=== PATIENT | male | born 1985 | race Caucasian/White ===

== ENCOUNTER 2020-09-20 16:33 | Observation (INO) | payer MEDICARE, MEDICAID, SELFPAY ==
[2020-09-20] VITALS (25 sets, daily range): BP systolic 94–126; BP diastolic 58–76; PULSE 76–113; RESP 12–26; TEMP 36.6–36.7; O2SAT 95–100; BMI 21.5; BMI 24.4
--- NOTE | 2020-09-20 17:06 | ECG_ITS ---
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 Measurements Intervals [place] Rate: 104 P: 67 HI: 161 QRS: 75 QRSD: 102 T: 67 QT: 384 QTc: 507 Interpretive Statements SINUS TACHYCARDIA Compared to ECG 09/02/2018 02:04:39 Sinus rhythm no longer present Electronically Signed On 09-21-2020 9:33:07 CDT by Bismark Bryson M.D. [email or web address] memorial hospitalMode Diagnosticsohio state east hospitalSQMOS/store/OM/[id number]/[id number]
[2020-09-20 17:59] LABS: Basophils % 0.3 %; Eosinophils % 0.3 %; Hematocrit 34.6 % (42.0-52.0); Hemoglobin 11.9 g/dL (11.7-16.6); Lymphocytes # 1.7 10^3/uL (0.8-4.8); Lymphocytes % 22.2 %; Mean Corpuscular HGB Conc 34.4 g/dL (30.0-36.0); Mean Corpuscular Hemoglobin 32.1 pg (28.0-34.0); Mean Corpuscular Volume 93.3 fL (80-94); Mean Platelet Volume 9.3 fL (7.4-10.4); Monocytes # 0.4 10^3/uL (0.2-0.9); Monocytes % 5.2 %; Neutrophils # 5.34 10^3/uL (1.8-7.7); Neutrophils % 71.7 %; Nucleated Red Blood Cells % 0 %; Platelet Count 337 10^3/cmm (130-400); Red Blood Count 3.71 10^6/uL (4.1-5.3); Red Cell Distribution Width 13.2 % (12.1-15.1); White Blood Count 7.4 10^3/uL (4.0-10.0)
[2020-09-20] MEDS: sodium chloride 0.9% 1,000 ML 999 ML IV ×3 (18:04→20:45)
[2020-09-20] MEDS: HYDROmorphone 1 mg/mL INJ 1 mL IVP (18:10)
--- NOTE | 2020-09-20 18:57 | W.ED.OVERDOS ---
HPI - Overdose General: Chief Complaint: Overdose Stated Complaint: poss od soma Time Seen by Provider: 09/20/20 16:51 Source: patient Mode of arrival: ambulatory Limitations: no limitations History of Present Illness: HPI Narrative: 35-year-old male came with EMS with a supposed overdose. He had taken 10 somas per people at the scene. Patient here is awake and will follow commands but is quite confused and altered and no history is available. He does have tremors here and is tachycardic. No other known ingestion. No injuries noted. History very limited due to no 1 else being here and patient being altered. Review of Systems General: Reports: ROS unobtainable due to mental status PFSH ED PFSH: Medical History Back pain Surgical History Previous back surgery Family History Other Hypertension Social History Smoking and tobacco status: current every day smoker cigarettes Packs smoked per day: 1 Quit status (tobacco): not considering quitting Alcohol intake: current Alcohol intake frequency: holidays/special occasions only History of recent travel: No Physical Exam Const: COMMON NORMALS: negative for patient oriented x3 EXAM LIMITATIONS: altered mental status GENERAL APPEARANCE: disheveled and ill appearing HENMT: COMMON NORMALS: normocephalic and atraumatic HEAD & SCALP: normocephalic and atraumatic Eye: COMMON NORMALS: Equal, round and reactive pupils present and EOMs intact bilaterally PUPIL: Yes Equal, round and reactive pupils present Neck/C-Spine: COMMON NORMALS: full ROM and supple Chest: COMMONS NORMALS: normal inspection of the chest and normal palpation of entire chest wall Resp: COMMON NORMALS: normal respiratory effort, No retractions, No use of accessory muscles and clear to auscultation bilaterally AUSCULTATION: clear to auscultation bilaterally Cardio: COMMON NORMALS: regular rhythm and No murmurs present (Cardio) RATE: tachycardic RHYTHM: regular rhythm GI: COMMON NORMALS: Normal to inspection, nondistended, normoactive bowel sounds present, Soft to palpation, non-tender and no masses PALPATION: Yes Soft to palpation Extremity: COMMON NORMALS: normal to inspection and full ROM Neuro: COMMON NORMALS: moves all extremities and no focal motor deficits; negative for patient oriented x3 Psych: COMMON NORMALS: cooperative; negative for mental status grossly normal and negative for Normal thought process present THOUGHT PROCESS: abnormal Skin: COMMON NORMALS: no rashes or lesions noted and no wounds GENERAL SKIN EXAM: no rashes or lesions noted Course Vital Signs: Vital signs: Vital Signs Temperature 97.9 F 09/20/20 16:46 Pulse Rate 86 09/20/20 20:44 Respiratory Rate 17 09/20/20 20:44 Blood Pressure 99/68 09/20/20 20:52 Pulse Oximetry 97 09/20/20 20:44 MDM - Overdose MDM Narrative: Medical decision making narrative: Patient presents here with an overdose. Likely overdose on morphine or somas. Drug screen was positive for opiates. Patient's mentation here is improved since he has been here. His vital signs improved with IV fluids. He has no signs of sepsis or infection. CT scan showed no signs of stroke here. Spoke to the hospitalist and will admit to the ICU at this time. I do not believe the overdose was intentional but it is difficult to get a history from patient. Lab Data: Labs: Lab Results 09/20/20 09/20/20 09/20/20 Range/Units 17:51 17:51 19:05 WBC 7.4 (4.0-10.0) 10^3/ uL RBC 3.71 L (4.1-5.3) 10^6/u L Hgb 11.9 (11.7-16.6) g/dL Hct 34.6 L (42.0-52.0) % MCV 93.3 (80-94) fL MCH 32.1 (28.0-34.0) pg MCHC 34.4 (30.0-36.0) g/dL RDW 13.2 (12.1-15.1) % Plt Count 337 (130-400) 10^3/c mm MPV 9.3 (7.4-10.4) fL Neut % (Auto) 71.7 % Lymph % (Auto) 22.2 % [place] % (Auto) 5.2 % Eos % (Auto) 0.3 % Baso % (Auto) 0.3 % Neut # (Auto) 5.34 (1.8-7.7) 10^3/u L Lymph # (Auto) 1.7 (0.8-4.8) 10^3/u L Raleigh # (Auto) 0.4 (0.2-0.9) 10^3/u L Eos # (Auto) 0.0 (0.0-0.8) 10^3/u L Baso # (Auto) 0.0 (0.0-0.1) 10^3/u L Nucleated RBC % (a uto) 0 % Nucleated RBCs # 0.0 /100WBC Sodium Cancelled 134 L Potassium Cancelled 4.1 Chloride Cancelled 102 Carbon Dioxide Cancelled 22 Anion Gap Cancelled 14.1 BUN Cancelled 5 L Creatinine Cancelled 0.7 GFR Calculation Cancelled 127.6 Glucose Cancelled 91 Calculated Osmolal ity Cancelled 275 L Calcium Cancelled 8.0 L Total Bilirubin Cancelled 0.5 AST Cancelled 16 ALT Cancelled 9 Alkaline Phosphata se Cancelled 120 Total Protein Cancelled 6.6 Albumin Cancelled 3.0 L Globulin Cancelled 3.6 Salicylates Cancelled < 0.3 L Urine Opiates Scre en (Negative) ng/mL Acetaminophen Cancelled < 5.0 L Ur Barbiturates Sc reen (Negative) ng/mL Ur Phencyclidine S crn (Negative) ng/mL Ur Amphetamines Sc reen (Negative) ng/mL U Benzodiazepines Scrn (Negative) ng/mL Urine Cocaine Scre en (Negative) ng/mL U Marijuana (THC) Screen (Negative) ng/mL Ethyl Alcohol Cancelled < 10 /10/06 Range/Units 19:22 WBC (4.0-10.0) 10^3/ uL RBC (4.1-5.3) 10^6/u L Hgb (11.7-16.6) g/dL Hct (42.0-52.0) % MCV (80-94) fL MCH (28.0-34.0) pg MCHC (30.0-36.0) g/dL RDW (12.1-15.1) % Plt Count (130-400) 10^3/c mm MPV (7.4-10.4) fL Neut % (Auto) % Lymph % (Auto) % [place] % (Auto) % Eos % (Auto) % Baso % (Auto) % Neut # (Auto) (1.8-7.7) 10^3/u L Lymph # (Auto) (0.8-4.8) 10^3/u L Raleigh # (Auto) (0.2-0.9) 10^3/u L Eos # (Auto) (0.0-0.8) 10^3/u L Baso # (Auto) (0.0-0.1) 10^3/u L Nucleated RBC % (a uto) % Nucleated RBCs # /100WBC Sodium Potassium Chloride Carbon Dioxide Anion Gap BUN Creatinine GFR Calculation Glucose Calculated Osmolal ity Calcium Total Bilirubin AST ALT Alkaline Phosphata se Total Protein Albumin Globulin Salicylates Urine Opiates Scre en Positive H (Negative) ng/mL Acetaminophen Ur Barbiturates Sc reen Positive H (Negative) ng/mL Ur Phencyclidine S crn Negative (Negative) ng/mL Ur Amphetamines Sc reen Negative (Negative) ng/mL U Benzodiazepines Scrn Positive H (Negative) ng/mL Urine Cocaine Scre en Negative (Negative) ng/mL U Marijuana (THC) Screen Positive H (Negative) ng/mL Ethyl Alcohol EKG Data^: EKG 1: Attestation: I personally reviewed and interpreted this EKG as follows: EKG interpretation date: 09/20/20 EKG interpretation time: 19:11 Interpretation: sinus tach hr [address] or t wave abnormalitis qrs 102 qtc 445 Critical Care Time Critical Care Time: Critical Care Time: Yes Total Critical Care Time: 35 Attestation: This case had a high probability of a clinically significant, sudden, or life threatening deterioration of this patient's condition which required my full and direct attention, intervention and personal management. Discharge Plan Discharge Patient Disposition: Admitted As Inpatient Clinical Impression: Altered mental status Overdose Qualifiers: Encounter type: initial encounter Injury intent: undetermined intent Qualified Code(s): T50.904A - Poisoning by unspecified drugs, medicaments and biological substances, undetermined, initial encounter Condition: Stable Coding Level of Care Code ED Mechanical Maintenance for [facility] Fwd Exam Comprehensive
--- NOTE | 2020-09-20 19:19 | CTR_ITS ---
PROCEDURE INFORMATION: Exam: CT Head Without Contrast Exam date and time: 09/20/2020 7:24 PM Age: 35 years old Clinical indication: Altered mental status/memory loss; Patient HX: AMS, od TECHNIQUE: Imaging protocol: Computed tomography of the head without contrast. Sagittal and coronal reformatted images were created and reviewed. Radiation optimization: All CT scans at this facility use at least one of these dose optimization techniques: automated exposure control; mA and/or kV adjustment per patient size (includes targeted exams where dose is matched to clinical indication); or iterative reconstruction. COMPARISON: CT head wo con* [id number] 09/01/2018 7:36 PM RADIATION DOSE METRICS: Total DLP (mGy-cm): 879.82 FINDINGS: Brain: No acute intracranial hemorrhage. No acute infarct. Ramey-white matter differentiation is preserved. No cerebral edema. No extra-axial fluid collections. No midline shift. Low-density extra-axial focus along the anterior tentorium in the midline. Findings are consistent with an arachnoid cyst. This measures 1.8 x 2.8 x 2.4 cm, stable compared with 09/01/2018 (series 602, image 19 and series 2, image 26). No evidence for Chiari 1 malformation. Cerebral ventricles: No hydrocephalus. Bones/joints: No acute fracture. Paranasal sinuses: Visualized paranasal sinuses are clear. Mastoid air cells: Mastoid air cells are clear bilaterally. Orbital cavity: Globes and lenses, extraocular muscles, and optic nerves are intact bilaterally. No acute intraorbital abnormality. Vasculature: Tiny focus of pneumocephalus in the left cavernous sinus (series 2, image 18). Soft tissues: The extracranial soft tissues are unremarkable. Dental: The patient is edentulous. CT/CT head wo con* [id number] IMPRESSION: 1. Tiny focus of pneumocephalus in the left cavernous sinus (series 2, image 18). This could be due to prior trauma versus prior injection. Recommend clinical correlation. 2. No evidence for acute hemorrhage or acute infarct. 3. Findings consistent with an arachnoid cyst along the anterior tentorium in the midline. Findings are stable compared with 09/01/2018. Radiation Dose CTDIVOL = (mGy): DLP = 879.82 (mGy-cm)
--- NOTE | 2020-09-20 19:20 | PC.NURSE ---
Pt cathed for UA using sterile technique. spec taken to lab. Pt resting in bed, VSS, sitter bedside
[2020-09-20 20:06] LABS: Amphetamines Screen Urine Negative (Negative); Barbiturates Screen Urine Positive (Negative); Benzodiazepines Screen Urine Positive (Negative); Cocaine Screen Urine Negative (Negative); Opiate Screen Urine Positive (Negative); PCP Screen Urine Negative (Negative); THC Screen Urine Positive (Negative)
--- NOTE | 2020-09-20 20:26 | P.HP_ITS ---
Providers/Chief Complaint Chief Complaint: poss od soma History of Present Illness Kahlil Hutton is a 35 year old male who takes Soma and hydrocodone for back pain presented today after ingestion of multiple tablets. Patient lives with his parents, today parents called EMS when they found him very lethargic and confused. Patient is endorsing taking 10 tablets of Soma and hydrocodone. He is stating that he managed to stay off these medications for couple of months and today took 10 tablets because of his back pain he is denying suicidal ideation. Denying chest pain, shortness of breath, nausea, vomiting, blurry vision. Diagnostics in the ER revealed normal CBC and BMP, noticed myoclonic movements, drug screen positive for opioids, barbiturates, benzodiazepines, marijuana, head CT unremarkable Review of Systems Const: Reports: fatigue and malaise; Denies: fever(s), chills or body aches Eyes: Denies: change in vision ENMT: Denies: throat pain Card: Denies: chest pain Resp: Denies: dyspnea GI: Denies: abdominal pain : Denies: flank pain Musc: Denies: neck pain Skin/Breast: Denies: rash Neuro: Denies: headache(s) Psych: Reports: anxiety Endo: Denies: polyuria Aaron/Lymph: Denies: easy bruising All/Imm: Denies: urticaria Medications/Allergies Home Medications Medication Instructions Recorded Confirmed Last Taken Type carisoprodol 350 mg tablet 350 mg PO TID 06/26/19 09/20/20 Unknown History duloxetine 20 mg capsule,delayed ? mg PO BID cap 06/26/19 09/20/20 Unknown History release mirtazapine 45 mg tablet 45 mg PO DAILY 06/26/19 09/20/20 Unknown History oxycodone 10 mg tablet 10 mg PO TID PRN 06/26/19 09/20/20 Unknown History risperidone 1 mg tablet 1 mg PO BID 06/26/19 09/20/20 Unknown History tamsulosin 0.4 mg capsule 0.4 mg PO BID cap 06/26/19 09/20/20 Unknown History alprazolam 1 mg PO BID PRN 09/20/20 09/20/20 Unknown History gabapentin 800 mg PO QID 09/20/20 09/20/20 Unknown History morphine 30 mg PO Q12H 09/20/20 09/20/20 Unknown History omeprazole 20 mg PO BID 09/20/20 09/20/20 Unknown History Allergies Allergy/AdvReac Type Severity Reaction Status Date / Time lorazepam [From Ativan] Allergy Severe ALGY-Difficulty Verified 09/20/20 16:57 Breathing PFSH Acute PFSH: Medical History Back pain Surgical History Previous back surgery Family History Other Hypertension Social History Smoking and tobacco status: current every day smoker cigarettes Packs smoked per day: 1 Quit status (tobacco): not considering quitting Alcohol intake: current Alcohol intake frequency: holidays/special occasions only History of recent travel: No Vitals/I&O/Wt Last Vital Signs Temp 97.9 F 09/20/20 16:46 Pulse 113 H 09/20/20 18:12 Resp 21 H 09/20/20 18:12 BP 95/62 09/20/20 18:12 Pulse Ox 99 09/20/20 18:12 09/20/20 09/20/20 09/20/20 06:59 14:59 22:59 Intake Total 1000 / 1000 Balance 1000 / 1000 Weight last 48 hrs Weight 68.039 kg Physical Exam Narrative: EXAM NARRATIVE: Young male laying comfortably in his bed Cooperative and pleasant during my evaluation Positive myoclonic movement of upper and lower extremities, pupils are sluggish, dilated, no neurological deficit Awake alert oriented x3 GCS 15 appears lethargic S1, S2 sinus rhythm no murmur appreciated Abdomen soft nontender bowel sound present Multiple skin tattoos Lower extremity no edema gangrene or ulcer Drowsy No skin changes of cellulitis gangrene or ulcer No joint swelling Abdomen nontender Data : 09/20/20 17:51 09/20/20 19:05 A&P Assessment and plan (1) Polysubstance abuse: Status: Acute (2) Overdose: Status: Acute (3) Back pain: Status: Acute Additional A&P Information Polysubstance abuse U tox positive for marijuana, opiates, benzodiazepines, barbiturates, patient endorsed to taking 10 tablets of Soma and hydrocodone, also has opioids in his home medication Close monitoring in the ICU because of his myoclonic movement noted in the ER, QTC prolonged 507, will check magnesium level, sinus tachycardia resolved with fluid resuscitation, no active fever, closer monitoring for worsening of extrapyramidal symptoms, he is not acidotic no kidney abnormality noted, conservative management for now, no suicidal ideation Regular diet DVT prophylaxis Lovenox Full code Attestations Medical Necessity Statement*: Anticipating discharge within 48 hours will need overnight ICU monitoring because of drug overdose and QTC prolongation, Time Spent in Patient Care: (>than 50% of time spent in counselling and/or direct pt care on unit) . 35mins Coding Level of Care Code Acute Fuel House Attendant for Bessie Iqbal Diagnoses Polysubstance abuse F19.10 Overdose T50.901A Back pain M54.9
[2020-09-20 20:27] LABS: Alanine Aminotransferase 9 U/L (0-41); Alkaline Phosphatase 120 IU/L (40-130); Aspartate Amino Transferase 16 U/L (0-40); Blood Urea Nitrogen 5 mg/dL (6-20); Carbon Dioxide 22 mmol/L (22-29); Chloride 102 mmol/L (98-107); Globulin 3.6 g/dL (1.3-4.6); Glomerular Filtration Rate 127.6 mL/min (90-130); Glucose 91 mg/dL (65-115); Osmolality Calculated 275 mOsm/kg (285-295); Sodium 134 mmol/L (136-145); Total Bilirubin 0.5 mg/dL (0.15-1.2); Total Protein 6.6 g/dL (6.6-8.7)
[2020-09-20 20:34] LABS: Acetaminophen < 5.0 ug/mL (10-30); Alcohol Level < 10 mg/dL (0-10); Salicylate < 0.3 mg/dL (3-10)
[2020-09-20 20:35] LABS: Anion Gap 14.1 (5-19); Potassium 4.1 mmol/L (3.5-5.1)
--- NOTE | 2020-09-20 22:30 | PC.NURSE ---
patient was waking up, more oriented to questions and was able to ambulate without difficulty. patient was requesting to go home, Dr. Fox was agreeable to him signing out AMA. We made contact with the patients mother, per his request, to come pick him up. Indigo spoke with Dr. Fox and made him aware of the patients recent statements for wanting to harm himself and her concern that this was an intentional act to overdose himself. she is agreeable to filling out an affidavit and Dr. Fox was agreeable to admit him as a 96 hour hold. patient became aggravated and tried to run off, he was returned to the room per Dr. Fox and security. patient was able to follow commands and sit back in the bed and was agreeable to taking 5mg Haldol for agitation despite claims that this medication doesn't work for him.
[2020-09-20] MEDS: haloperidol inj 5 mg/mL INJ 1 mL IM (22:32)
[2020-09-20] MEDS: enoxaparin 40 mg/0.4 mL Syringe SUBCUT (23:09)
[2020-09-20] MEDS: calcium gluconate 0.1 gm/mL 10% SDV 10mL 1 GM IVP (23:09)
[2020-09-20] MEDS: sodium chloride 0.9% 1,000 ML 75 ML IV (23:09)
[2020-09-20 23:25] LABS: Magnesium 1.5 mg/dL (1.7-2.3); Thyroid Stimulating Hormone 0.14 uIU/mL (0.27-4.20)
[2020-09-21] VITALS (18 sets, daily range): BP systolic 91–129; BP diastolic 56–87; PULSE 65–99; RESP 15–32; TEMP 36.6–36.8; O2SAT 96–100
--- NOTE | 2020-09-21 07:00 | ECG_ITS ---
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 Measurements Intervals [place] Rate: 76 P: 74 SC: 169 QRS: 83 QRSD: 96 T: 75 QT: 378 QTc: 426 Interpretive Statements SINUS RHYTHM Compared to ECG 09/20/2020 19:11:54 Sinus tachycardia no longer present Electronically Signed On 09-21-2020 20:51:48 CDT by Emile Ruvalcaba M.D. [email or web address].[email or web address] critical care hospitalSyCara [facility].OnForce/store/OM/[id number]
--- NOTE | 2020-09-21 07:08 | PC.NURSE ---
note rare myoclonic movement.
[2020-09-21 09:09] LABS: Glucose Point of Care 104 mg/dL (70-110)
--- NOTE | 2020-09-21 09:09 | PC.NURSE ---
up to bathroom. elmo. well. ok at this time with heart monitor on so qt interval can be monitored. watchint tv. no myoclonic activity noted, doesnt like his bed. bed adjusts to pressure points. states it wakes him up.
[2020-09-21] MEDS: thiamine 100 mg Tablet PO (09:20)
[2020-09-21 10:20] LABS: Basophils % 0.2 %; Eosinophils % 0.2 %; Hematocrit 33.3 % (42.0-52.0); Hemoglobin 11.1 g/dL (11.7-16.6); Lymphocytes # 1.4 10^3/uL (0.8-4.8); Mean Corpuscular HGB Conc 33.3 g/dL (30.0-36.0); Mean Corpuscular Hemoglobin 31.8 pg (28.0-34.0); Mean Corpuscular Volume 95.4 fL (80-94); Mean Platelet Volume 9.2 fL (7.4-10.4); Monocytes # 0.4 10^3/uL (0.2-0.9); Monocytes % 5.5 %; Neutrophils # 4.76 10^3/uL (1.8-7.7); Neutrophils % 72.9 %; Nucleated Red Blood Cells % 0 %; Platelet Count 328 10^3/cmm (130-400); Red Blood Count 3.49 10^6/uL (4.1-5.3); Red Cell Distribution Width 13.4 % (12.1-15.1); White Blood Count 6.5 10^3/uL (4.0-10.0)
--- NOTE | 2020-09-21 10:31 | PC.NURSE ---
labs jovany from left piid.
[2020-09-21 11:01] LABS: Alanine Aminotransferase 10 U/L (0-41); Albumin Level 3.3 g/dL (3.5-5.2); Alkaline Phosphatase 124 IU/L (40-130); Blood Urea Nitrogen 4 mg/dL (6-20); Calcium 8.5 mg/dL (8.5-10.5); Carbon Dioxide 24 mmol/L (22-29); Chloride 108 mmol/L (98-107); Globulin 3.5 g/dL (1.3-4.6); Glomerular Filtration Rate 127.6 mL/min (90-130); Glucose 97 mg/dL (65-115); Iron 27 ug/dL (59-158); Magnesium 1.5 mg/dL (1.7-2.3); Osmolality Calculated 289 mOsm/kg (285-295); Phosphorus 1.8 mg/dL (2.5-4.5); Sodium 141 mmol/L (136-145); Total Bilirubin 0.3 mg/dL (0.15-1.2); Total Protein 6.8 g/dL (6.6-8.7); Vitamin B12 168 pg/mL (232-1245)
[2020-09-21 11:10] LABS: Anion Gap 13.1 (5-19); Potassium 4.1 mmol/L (3.5-5.1)
[2020-09-21 11:11] LABS: Aspartate Amino Transferase 22 U/L (0-40); Percent Saturation 10.8 % (20-50); Total Iron Binding Capacity 250 mcg/dl; Unsaturated Iron Binding 223 ug/dL (112-347)
[2020-09-21 11:13] LABS: HIV 1 & 2 Antibody Non-Reactive (Non-Reactiv); HIV 1 & 2 Antigen Non-Reactive (Non-Reactiv)
[2020-09-21 11:18] LABS: Folate Level 3.6 ng/mL (4.5-32.2)
--- NOTE | 2020-09-21 11:46 | PC.NURSE ---
uncle in with other family. pt. became agitated when they discussed pt. taking extra meds when he gets them in the 1st. of month. family left.
[2020-09-21 11:49] LABS: Free T4 Free Thyroxine 1.44 ng/dL (0.82-1.77)
--- NOTE | 2020-09-21 12:11 | PM.PN ---
Subjective Subjective: Interval history: Hospital course, H&P appreciated. On examination patient and comfortably in bed. He is AO x3. Denies any suicidal homicidal ideation. He states he used to take these medications on a daily basis but yesterday he was having more back pain so he took some extra tablets. He states he does not have any ideation to hurt himself. He is asking when can he go home. Denies any headache, dizziness, difficulty in breathing. Has remained hemodynamically stable and on room air overnight. EKG appreciated. Vitals/I&O/Wt Last Vital Signs Temp 98 F 09/21/20 09:00 Pulse 65 09/21/20 11:00 Resp 27 H 09/21/20 11:00 BP 110/87 09/21/20 11:00 Pulse Ox 100 09/21/20 09:00 09/20/20 09/21/20 09/21/20 22:59 06:59 14:59 Intake Total 3000 / 3000 Output Total 1350 / 1350 Balance 3000 / 3000 -1350 / 1650 Weight last 48 hrs Weight 79.379 kg Weight 68.039 kg Physical Exam Narrative: EXAM NARRATIVE: General: No acute distress, AO x3, multiple tattoos all over the body HEENT: PERRLA, pupils bilaterally equal and reactive Chest: Normal vesicular breath sounds, no added sounds, equal good air entry bilaterally CVS: S1-S2 regular, no murmurs, no tachycardia, no gallops, no rubs Abdomen: Soft, nontender, no organomegaly, bowel sounds present Neuro: No focal deficits, no facial deformity, AO x3, power 5/5 in all limbs Psych: COMMON NORMALS: mental status grossly normal, Normal thought process present and speech normal ATTITUDE: Yes calm and Yes engaged ACTIVITY/MOTOR BEHAVIOR: Yes appropriate eye contact SPEECH: Yes normal speech THOUGHT PROCESS: Normal thought process present Data : 09/21/20 10:05 09/21/20 10:05 A&P Assessment and plan (1) Polysubstance abuse: Status: Acute (2) Overdose: Status: Acute Qualifiers: Encounter type: initial encounter Injury intent: undetermined intent Qualified Code(s): T50.904A - Poisoning by unspecified drugs, medicaments and biological substances, undetermined, initial encounter (3) Back pain: Status: Acute (4) Malnutrition: Status: Acute (5) Low folate: Status: Acute (6) Low vitamin B12 level: Status: Acute Additional A&P Information Polysubstance abuse: Denies any suicidal or homicidal ideation. U tox positive for marijuana, opiates, benzodiazepines, barbiturates, patient endorsed to taking 10 tablets of Soma and hydrocodone, also has opioids in his home medication QTC has normalized. No telemetry arrhythmias. Repeat blood work. Repeat CBC, CMP. Check vitamin B12, folate, iron panel. TSH low. Check free T3 and free T4 level. On review of blood work vitamin B12, folate, iron panel depleted. Replete with vitamin B12 shot subcu once followed by daily supplementation. Daily folic acid supplementation. 96 hr hold. Patient is medically cleared to be transferred to neuropsych [place]. On discharge he should be discharged on therapeutic multivitamin, oral folic acid and vitamin B12. Regular diet Low probability of DVT Full code Attestations Medical Necessity Statement*: Requires further hospitalization for 96 hr hold for polysubstance abuse Time Spent in Patient Care: Greater than 35 minutes (>than 50% of time spent in counselling and/or direct pt care on unit). Coding Level of Care Code Acute Band Scroll Saw Operator for Bessie Iqbal Diagnoses Polysubstance abuse F19.10 Overdose T50.904A Encounter type: initial encounter Injury intent: undetermined intent Back pain M54.9 Malnutrition E46 Low folate E53.8 Low vitamin B12 level E53.8
[2020-09-21] MEDS: cyanocobalamin 1,000 mcg Tablet 500 MCG PO (12:49)
[2020-09-21] MEDS: multivitamin therapeutic Tablet 1 TAB PO (12:50)
[2020-09-21] MEDS: cyanocobalamin 1,000 mcg/mL SDV 1000 MCG SUBCUT (12:50)
--- NOTE | 2020-09-21 13:06 | PC.NURSE ---
no more agitation at this time.
--- NOTE | 2020-09-21 13:51 | PC.NURSE ---
addendum to 11:36 note. family brought in note on lined notebook paper, stating to the effect that he takes to much meds each mo. when he firsts gets them. i did not read note, pt. was allowed to read and became very upset. family attempted to get note back w/o success. pt. tore note into shreds, wadded it up. would not let staff put it in trash. stated he did not want it on his records
--- NOTE | 2020-09-21 13:57 | PC.NURSE ---
transferred to npu per w/c with security. no agitation. mentioned it was like alf;
[2020-09-21] MEDS: nicotine 2 mg Gum BUCCAL (15:15)
[2020-09-21] MEDS: mirtazapine 30 mg Tablet PO (20:16)
[2020-09-21] MEDS: mirtazapine 15 mg Tablet PO (20:16)
[2020-09-21] MEDS: magnesium oxide 400 mg tablet PO (20:57)
[2020-09-21] MEDS: duloxetine 20 mg Capsule PO (20:58)
[2020-09-21] MEDS: folic acid 1 mg Tablet PO (20:58)
[2020-09-21] MEDS: tamsulosin 0.4 mg Capsule PO (20:58)
[2020-09-22 05:41] VITALS: RESP 17
[2020-09-22] MEDS: cyanocobalamin 1,000 mcg Tablet 500 MCG PO (08:22)
[2020-09-22] MEDS: magnesium oxide 400 mg tablet PO (08:22)
[2020-09-22] MEDS: duloxetine 20 mg Capsule PO (08:23)
[2020-09-22] MEDS: folic acid 1 mg Tablet PO (08:23)
[2020-09-22] MEDS: multivitamin therapeutic Tablet 1 TAB PO (08:23)
[2020-09-22] MEDS: thiamine 100 mg Tablet PO (08:23)
--- NOTE | 2020-09-22 08:24 | PC.NURSE ---
refused scheduled Flomax
--- NOTE | 2020-09-22 11:37 | PC.RESP ---
SMOKING CESSATION INFORMATION SENT TO PATIENT.
--- NOTE | 2020-09-22 12:41 | PM.SDS ---
Short Stay Summary Providers Date of Admit/Discharge: 09/22/20 Attending Provider: Yamil Tesfaye MD [facility] History of Present Illness Kahlil Hutton is a 35 year old male with longstanding history of chronic back pain managed by primary care with opioid pain medication presented to the emergency department after his parents had called an ambulance secondary to concerns about patient with altered mental status. Patient eventually able to provide history stating that he had taken additional tablets of Soma and hydrocodone secondary to worsening back pain leading to him becoming unintentionally altered. Patient states he has had no recent or current suicidal ideation or thoughts about ending his life although he does report a remote history of suicidal thoughts back after his brother had from suicide. Patient does report past history of treatment for depressive symptoms per above and states that he has been managed with antidepressant medication but has been inconsistent with using this medication. Review of Systems General: Reports: 10 or more systems reviewed and unremarkable except in HPI and below Home Meds/Allergies Home Medications and Allergies Home Medications Medication Instructions Recorded Confirmed Type carisoprodol 350 mg tablet 350 mg PO TID 06/26/19 09/20/20 History duloxetine 20 mg capsule,delayed ? mg PO BID cap 06/26/19 09/20/20 History release mirtazapine 45 mg tablet 45 mg PO DAILY 06/26/19 09/20/20 History oxycodone 10 mg tablet 10 mg PO TID PRN 06/26/19 09/20/20 History risperidone 1 mg tablet 1 mg PO BID 06/26/19 09/20/20 History tamsulosin 0.4 mg capsule 0.4 mg PO BID cap 06/26/19 09/20/20 History alprazolam 1 mg PO BID PRN 09/20/20 09/20/20 History gabapentin 800 mg PO QID 09/20/20 09/20/20 History morphine 30 mg PO Q12H 09/20/20 09/20/20 History omeprazole 20 mg PO BID 09/20/20 09/20/20 History Allergies Allergy/AdvReac Type Severity Reaction Status Date / Time lorazepam [From Ativan] Allergy Severe ALGY-Difficulty Verified 09/20/20 16:57 Breathing PFSH Acute PFSH: Medical History Back pain Surgical History Previous back surgery Family History Other Hypertension Social History Smoking and tobacco status: current every day smoker cigarettes Packs smoked per day: 1 Quit status (tobacco): not considering quitting Alcohol intake: current Alcohol intake frequency: holidays/special occasions only History of recent travel: No Vitals/I&O/Wt Last Vital Signs Temp 98.3 F 09/21/20 20:35 Pulse 97 09/21/20 20:35 Resp 17 09/22/20 05:41 BP 91/56 09/21/20 20:35 Pulse Ox 96 09/21/20 20:35 Weight last 48 hrs Weight 79.379 kg Weight 68.039 kg Physical Exam Narrative: EXAM NARRATIVE: MSE: Patient is gaunt, unshaven male who appears tired, disheveled but polite, calm, cooperative and interactive, sitting up on his bed but occasionally covering his eyes secondary to complaint of blurring vision Psychomotor activity is neither increased or decreased, no agitation Speech is normal rate and volume, spontaneous, fair articulation, not pressured Feel okay, congruent affect, not labile Alert and oriented to person, place, time, situation Memory and concentration appear to be fair to intact per interview Intellectual functioning appears to be average at best based on vocabulary, interview Thought process, linear, no flight of ideas, no looseness of associations Thought content, no delusions, does not appear to be attending to any internal stimuli, no suicidal or homicidal ideation Insight and judgment appear to be fair to intact Hospital Course Hospital Course Patient was initially admitted to the ICU for observation during which time a head CT was also completed which was unremarkable. Patient was noted to have concerns of malnutrition and was started on vitamin B12, folic acid. Patient states that he has had reduced appetite throughout the duration of his chronic pain management with opioid pain medication. Patient states that his appetite has only been fair during his hospital stay. He denies any recent or current depressive symptoms and currently denies any suicidal ideation. Patient participated in group sessions as well as unit milieu with no reports of any behavioral disturbances. Patient reports being future oriented and states that he is interested in pursuing outpatient behavioral health follow-up for medication management for history of depressive symptoms as well as therapy targeting his coping strategies with his chronic pain. Patient was not suicidal at the time of discharge and was not endorsing any depressive symptoms and did not appear to pose an imminent threat of harm to self or others. Low to moderate risk of harm to self although patient did present to the hospital with altered mental status secondary to taking more pain medication than prescribed secondary to worsening pain which may elevate patient's risk if he continues to take medication as not prescribed or demonstrates any maladaptive coping strategies in the context of uncontrolled pain which leads to unexpected, impulsive behavior. Risk mitigation included hospitalization for observation in ICU for clearing of sensorium as well as evaluation for any underlying mood or depressive symptoms or suicidal ideation as well as coordination for safe discharge including follow-up at behavioral health. Patient was able to communicate his understanding of the need to take his medications as prescribed and to avoid any substances or alcohol as well as needed compliance with his medication, medication management and therapy follow-up in order to develop more adaptive coping strategies in order to further mitigate his risk of harm to self and others. Also discussed need for improved nutrition and continued supplementation in the context of his reduced appetite with a daily multivitamin with ongoing monitoring and follow-up by his primary care post discharge which the patient communicated his understanding and agreement. SSS Data Data Completed and Pending: Completed Studies During Hospitalization Category Date Time Status CT head wo con* 7 [id number] Urgent Cat Scan 09/20/20 19:19 Completed Diagnoses at Discharge Discharge Diagnosis (1) Polysubstance abuse: Status: Acute (2) Overdose: Status: Acute Qualifiers: Encounter type: initial encounter Injury intent: undetermined intent Qualified Code(s): T50.904A - Poisoning by unspecified drugs, medicaments and biological substances, undetermined, initial encounter (3) Back pain: Status: Acute (4) Malnutrition: Status: Acute (5) Low folate: Status: Acute (6) Low vitamin B12 level: Status: Acute Discharge Plan Discharge Patient Disposition: Home Prescriptions: New mirtazapine 15 mg Tablet 15 mg PO BEDTIME Qty: 30 RF: 0 Continued oxycodone 10 mg tablet 10 mg PO TID PRN (Reason: PAIM) RF: 0 carisoprodol [Soma] 350 mg tablet 350 mg PO TID RF: 0 duloxetine 20 mg capsule,delayed release(DR/EC) ? mg PO BID RF: 0 tamsulosin [Flomax] 0.4 mg capsule 0.4 mg PO BID RF: 0 morphine 30 mg tablet extended release 30 mg PO Q12H RF: 0 gabapentin 800 mg tablet 800 mg PO QID RF: 0 omeprazole 20 mg capsule,delayed release(DR/EC) 20 mg PO BID RF: 0 Discontinued risperidone [Risperdal] 1 mg tablet 1 mg PO BID RF: 0 mirtazapine 45 mg tablet 45 mg PO DAILY RF: 0 alprazolam 1 mg tablet 1 mg PO BID PRN (Reason: Anxiety) RF: 0 Discharge Orders: Discharge Order (Routine); Ordered 09/22/20 Ordered By: Efra Hall Referrals: [facility] [Outside] Patient Instructions: Opioid Safety Attestations Medical Necessity Statement*: Outpatient medication management, counseling of the least restrictive and appropriate level of care at this time Time Spent in Patient Care*: greater than 30 min Status at Discharge: Cognitive status at discharge: cognitively intact, Behavioral status at discharge: cooperative, Functional status at discharge: independent ambulation Overall status at discharge: patient is back to baseline Quality Metrics Clinical Quality Measures: During this hospital stay, did patient experience: None Coding Level of Care Code Acute General Neurologist for [facility] Diagnoses Polysubstance abuse F19.10 Overdose T50.904A Encounter type: initial encounter Injury intent: undetermined intent Back pain M54.9 Malnutrition E46 Low folate E53.8 Low vitamin B12 level E53.8
[2020-09-22 13:03] VITALS: BP 91/56; PULSE 97; RESP 17; TEMP 36.8; O2SAT 96
== END 2020-09-22 15:01 | disposition home or self-care (01) ==
LOC: ER 20:48 → ICU 22:01 → NP 09-21 13:42
PROVIDERS: Emergency Medicine; Admitting Provider Internal Medicine; Emergency Provider Emergency Medicine; Visit Provider Student in an Organized Health Care Education/Training Program
DX: F19.10 Other psychoactive substance abuse, uncomplicated (principal); T50.904A Poisoning by unspecified drugs, medicaments and biological substances, undetermined, initial encounter; M54.9 Dorsalgia, unspecified; E46 Unspecified protein-calorie malnutrition; E53.8 Deficiency of other specified B group vitamins; R41.82 Altered mental status, unspecified
CPT/HCPCS: 36415; 36416; 70450; 80053; 80306; 80307; 82607; 82746; 82962; 83540; 83550; 83735; 84100; 84439; 84443; 84481; 85025; 87806; 93005; 96361; 96372; 96374; 96375; 99285; G0378; J0610; J1170; J1630; J1650; J3420; J7030

== ENCOUNTER 2021-03-06 21:43 | Inpatient (IN) | payer MEDICARE, MEDICAID, SELFPAY ==
[2021-03-06 22:05] VITALS: BP 166/93; PULSE 95; RESP 18; TEMP 36.6; O2SAT 98; BMI 24.5
--- NOTE | 2021-03-06 22:33 | ED_ITS ---
HPI - Psych General: Chief Complaint: Psychiatric Symptoms Stated Complaint: Possible 96 Time Seen by Provider: 03/06/21 21:44 Source: patient and police Mode of arrival: other (police) Limitations: no limitations History of Present Illness: HPI Narrative: 36-year-old male presents here with police with suicidal ideations. 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 Police did find them at the train tracks. He denies any alcohol or drug abuse today does state has been very depressed. He denies any worsening improving factors. Associated symptoms: Reports depression and suicidal ideation Review of Systems Const: Denies: fever(s), chills, body aches or change in appetite Eyes: Denies: blurry vision or eye discomfort ENMT: Denies: throat pain or dental pain Card: Denies: chest pain Resp: Denies: dyspnea GI: Denies: abdominal pain, nausea, vomiting or diarrhea : Denies: dysuria Musc: Denies: neck pain or back pain Skin/Breast: Denies: rash Neuro: Denies: headache(s) Psych: Reports: depression and suicidal ideation Aaron/Lymph: Denies: easy bruising All/Imm: Denies: urticaria PFSH ED PFSH: Medical History Back pain Low folate Low vitamin B12 level Malnutrition Overdose Suicide attempt by multiple drug overdose Surgical History Previous back surgery Family History Other Hypertension Social History Smoking and tobacco status: current every day smoker cigarettes Packs smoked per day: 1 Quit status (tobacco): not considering quitting Alcohol intake: current Alcohol intake frequency: holidays/special occasions only History of recent travel: No Physical Exam Const: COMMON NORMALS: no acute distress, patient oriented x3 and healthy appearing HENMT: COMMON NORMALS: normocephalic and atraumatic HEAD & SCALP: normocephalic and atraumatic Eye: COMMON NORMALS: Equal, round and reactive pupils present and EOMs intact bilaterally PUPIL: Yes Equal, round and reactive pupils present Neck/C-Spine: COMMON NORMALS: full ROM and supple Chest: COMMONS NORMALS: normal inspection of the chest and normal palpation of entire chest wall Resp: COMMON NORMALS: normal respiratory effort, No retractions, No use of accessory muscles and clear to auscultation bilaterally AUSCULTATION: clear to auscultation bilaterally Cardio: COMMON NORMALS: regular rate, regular rhythm and No murmurs present (Cardio) RATE: regular rate RHYTHM: regular rhythm GI: COMMON NORMALS: Normal to inspection, nondistended, normoactive bowel sounds present, Soft to palpation, non-tender and no masses PALPATION: Yes Soft to palpation Extremity: COMMON NORMALS: normal to inspection and full ROM Neuro: COMMON NORMALS: patient oriented x3, moves all extremities and no focal motor deficits Psych: COMMON NORMALS: mental status grossly normal, Normal thought process present and cooperative THOUGHT PROCESS: Normal thought process present THOUGHT CONTENT: Yes Suicidality present Skin: COMMON NORMALS: no rashes or lesions noted and no wounds GENERAL SKIN EXAM: no rashes or lesions noted Course Vital Signs: Vital signs: Vital Signs Temperature 97.8 F 03/06/21 22:05 Pulse Rate 95 03/06/21 22:05 Respiratory Rate 18 03/06/21 22:05 Blood Pressure 166/93 03/06/21 22:05 Pulse Oximetry 98 03/06/21 22:05 MDM - Psych MDM Narrative: Medical decision making narrative: Patient presents here with suicidal ideations patient is medically cleared I spoke to the psychiatrist and will admit to the psychiatric unit. Lab Data: Labs: Lab Results 03/06/21 03/06/21 23:20 23:20 WBC 9.6 10^3/uL 10^3/ uL (4.0-10.0) RBC 3.58 10^6/uL L 10 ^6/uL (4.1-5.3) Hgb 11.2 g/dL L g/dL (11.7-16.6) Hct 33.2 % L % (42.0-52.0) MCV 92.7 fl fl (80-94) MCH 31.3 pg pg (28.0-34.0) MCHC 33.7 g/dL g/dL (30.0-36.0) RDW 14.6 % % (12.1-15.1) Plt Count 319 10^3/cmm 10^3 /cmm (130-400) MPV 9.3 fL fL (7.4-10.4) Neut % (Auto) 58.1 % % Lymph % (Auto) 33.7 % % [place] % (Auto) 4.8 % % Eos % (Auto) 2.7 % % Baso % (Auto) 0.5 % % Neut # (Auto) 5.54 10^3/uL 10^3 /uL (1.8-7.7) Lymph # (Auto) 3.2 10^3/uL 10^3/ uL (0.8-4.8) [place] # (Auto) 0.5 10^3/uL 10^3/ uL (0.2-0.9) Eos # (Auto) 0.3 10^3/uL 10^3/ uL (0.0-0.8) Baso # (Auto) 0.1 10^3/uL 10^3/ uL (0.0-0.1) Nucleated RBC % (a uto) 0 % % Nucleated RBCs # 0.0 /100WBC /100W BC Sodium 136 mmol/L mmol/L (136-145) Potassium 3.6 mmol/L mmol/L (3.5-5.1) Chloride 98 mmol/L mmol/L (98-107) Carbon Dioxide 27 mmol/L mmol/L (22-29) Anion Gap 14.6 (5-19) BUN 8 mg/dL mg/dL (6-20) Creatinine 0.8 mg/dL mg/dL (0.7-1.2) GFR Calculation 108.8 mL/min mL/m in (90-130) Glucose 100 mg/dL mg/dL (65-115) Calculated Osmolal ity 280 mOsm/kg L mOs m/kg (285-295) Calcium 8.8 mg/dL mg/dL (8.5-10.5) Total Bilirubin 0.2 mg/dL mg/dL (0.15-1.2) AST 37 U/L U/L (0-40) ALT 21 U/L U/L (0-41) Alkaline Phosphata se 118 IU/L IU/L (40-130) Total Protein 6.9 g/dL g/dL (6.6-8.7) Albumin 3.6 g/dL g/dL (3.5-5.2) Globulin 3.3 g/dL g/dL (1.3-4.6) Salicylates < 0.3 mg/dL L mg/ dL (3-10) Acetaminophen < 5.0 ug/mL L ug/ mL (10-30) Ethyl Alcohol < 10 mg/dL mg/dL (0-10) Discharge Plan Discharge Patient Disposition: Admitted As Inpatient Clinical Impression: Suicidal ideation Condition: Stable Coding Level of Care Code ED Senior Environmental Practice Leader for [facility]ie Fwd Exam Comprehensive
[2021-03-06] MEDS: haloperidol inj 5 mg/mL INJ 1 mL IM (22:50)
[2021-03-06 23:29] LABS: Basophils # 0.1 10^3/uL (0.0-0.1); Basophils % 0.5 %; Eosinophils # 0.3 10^3/uL (0.0-0.8); Eosinophils % 2.7 %; Hematocrit 33.2 % (42.0-52.0); Hemoglobin 11.2 g/dL (11.7-16.6); Lymphocytes # 3.2 10^3/uL (0.8-4.8); Lymphocytes % 33.7 %; Mean Corpuscular HGB Conc 33.7 g/dL (30.0-36.0); Mean Corpuscular Hemoglobin 31.3 pg (28.0-34.0); Mean Corpuscular Volume 92.7 fl (80-94); Mean Platelet Volume 9.3 fL (7.4-10.4); Monocytes # 0.5 10^3/uL (0.2-0.9); Monocytes % 4.8 %; Neutrophils # 5.54 10^3/uL (1.8-7.7); Neutrophils % 58.1 %; Nucleated Red Blood Cells % 0 %; Platelet Count 319 10^3/cmm (130-400); Red Blood Count 3.58 10^6/uL (4.1-5.3); Red Cell Distribution Width 14.6 % (12.1-15.1); White Blood Count 9.6 10^3/uL (4.0-10.0)
[2021-03-07 00:07] LABS: Alanine Aminotransferase 21 U/L (0-41); Albumin Level 3.6 g/dL (3.5-5.2); Alkaline Phosphatase 118 IU/L (40-130); Blood Urea Nitrogen 8 mg/dL (6-20); Calcium 8.8 mg/dL (8.5-10.5); Carbon Dioxide 27 mmol/L (22-29); Chloride 98 mmol/L (98-107); Globulin 3.3 g/dL (1.3-4.6); Glomerular Filtration Rate 108.8 mL/min (90-130); Glucose 100 mg/dL (65-115); Osmolality Calculated 280 mOsm/kg (285-295); Sodium 136 mmol/L (136-145); Total Bilirubin 0.2 mg/dL (0.15-1.2); Total Protein 6.9 g/dL (6.6-8.7)
[2021-03-07 00:15] LABS: Acetaminophen < 5.0 ug/mL (10-30); Alcohol Level < 10 mg/dL (0-10); Anion Gap 14.6 (5-19); Aspartate Amino Transferase 37 U/L (0-40); Potassium 3.6 mmol/L (3.5-5.1); Salicylate < 0.3 mg/dL (3-10)
[2021-03-07 01:04] VITALS: BP 115/82; PULSE 89; RESP 16; TEMP 36.3; O2SAT 96
[2021-03-07 01:15] VITALS: BP 139/82; PULSE 82; RESP 14; O2SAT 95
--- NOTE | 2021-03-07 03:07 | PC.NURSE ---
Kahlil Hutton is a 36 year old male. Brought to unit via wheelchair by security and nursing ER staff. Patient is slumped over in wheelchair. He stated he lives at home with his Mom. They got into an argument today because she wouldn't listen to him. Patient stated he didn't mean what he said. He was just trying to scare his Mom and make a point. Patient stated he just wants to sleep. Very sleepy in appearance. Patient can not sit upright. Speech is slurred and delayed. Patient appears to be shivering. When asked if he was cold, patient stated he just wants to sleep. Then wake up in the morning and talk to doctor so he can return home. Patient has various abrasions over the upper portion of his body and the top of his head. Patient stated he recently fell when asked how he obtained abrasions. Per ER reporting nurse, nurse observed IV tracks on right AC. Patient denies using any drugs or alcohol. Patient denies any sob, pain, SI or HI. Skin check completed with another RN present. Patient assisted into bed. Patient resting peacefully.
[2021-03-07 06:00] VITALS: BP 93/60; PULSE 74; RESP 16; TEMP 36.6; O2SAT 96
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
[2021-03-07 14:00] VITALS: BP 108/65; PULSE 71; RESP 18; TEMP 36.2; O2SAT 96
[2021-03-07 19:56] VITALS: BP 120/76; PULSE 69; RESP 20; TEMP 36.9; O2SAT 98
[2021-03-08 06:00] VITALS: BP 131/74; PULSE 62; RESP 17; TEMP 36.4; O2SAT 99
--- NOTE | 2021-03-08 12:48 | NPU.GN ---
[facility] Group Topic:Coping Kills Checklist General Mood of Group: Kahlil did not attend group today. He wanted to sleep.
[2021-03-08 14:00] VITALS: BP 119/70; PULSE 83; RESP 20; TEMP 36.9; O2SAT 99
--- NOTE | 2021-03-08 18:58 | PM.NPN ---
Subjective NPU Subjective: Interval history: I discussed the patient's case with Dr. Evans and the treatment team. They say he has pain issues and has been on Soma and gabapentin. It was the anniversary of his brother's and he had a rope around his neck and then later headed to the train tracks stating he was going to kill himself. He is on a 96-hour hold. The patient tells me the story of his admission. He said someone called 911 and reported that he was suicidal. He said he did go to the train tracks but was not planning on killing himself, that was just a convenient way to walk. When the police came they told him to get down or get tased. He says his mood is okay, and he denies suicidal and homicidal ideation. No auditory or visual hallucinations. He does report that he has been using substances and needs to stop. He is and has 2 kids, but his substance use jeopardizes his ability to see them. Mental Status Exam MSE Comments: The patient is a well-nourished well-developed white male in hospital scrubs with fair grooming and eye contact. No abnormal movements except for mild psychomotor agitation. Cooperative with exam and mild distress. Speech was at and increased rate normal volume. Mood described as fine, affect was incongruent, sad and blunted. Thought process organized. Thought content: Patient denies suicidal homicidal ideation, there are no delusions reported or noted, he denied auditory or visual hallucinations. Attention concentration were intact and memory was unreliable but none were formally tested. He is alert and oriented x3. Insight and judgment are impaired. Impulse control is impaired. Vitals/I&O/Wt Last Vital Signs Temp 98.4 F 03/08/21 14:00 Pulse 83 03/08/21 14:00 Resp 20 H 03/08/21 14:00 BP 119/70 03/08/21 14:00 Pulse Ox 99 03/08/21 14:00 03/08/21 03/08/21 03/08/21 06:59 14:59 22:59 Intake Total 240 / 240 Balance 240 / 240 Weight last 48 hrs Weight 75.296 kg Data NPU : 03/06/21 23:20 03/06/21 23:20 A&P Assessment and plan (1) Major depressive disorder, recurrent severe without psychotic features: Status: Acute (2) Suicidal ideation: Status: Acute (3) Polysubstance abuse: Status: Acute (4) Back pain: Status: Acute Additional A&P Information This is a 36-year-old white male with some history of mental health and addiction issues as well as genetic loading for addiction mental health and possibly suicide who presents near the anniversary of his brother's suicide with reports he was contemplating suicide currently unclear whether he wants to take medication or just leave. 1. Continue current medication. We restarted his pain medications. 2. Continue every 15 minute checks for safety. 3. Encourage individual, group and milieu therapies. 4. Encourage sober living treatment after discharge at the highest level of care to which he is willing to commit. Involuntary Hold Information 96 Hour Hold: 96 Hour Involuntary Admission: Yes 96 Hour Hold Ending Date: 03/13/21 96 Hour Hold Ending Time: 21:44 Attestations NPU Medical Necessity Statement*: Inpatient hospitalization is medically necessary and the clinically appropriate intervention at this time. We will monitor medication to make changes as indicated. Likely length of stay 3 to 5 days. Coding Level of Care Code Acute Telesales Specialist for Bessie Fwd Diagnoses Major depressive disorder, recurrent severe without psychotic features F33.2 Suicidal ideation R45.851 Polysubstance abuse F19.10 Back pain M54.9
[2021-03-08 20:06] VITALS: BP 107/66; PULSE 103; RESP 18; TEMP 36.6; O2SAT 99
[2021-03-08] MEDS: gabapentin 400 mg Capsule 800 MG PO (20:50)
[2021-03-08] MEDS: mirtazapine 15 mg Tablet 45 MG PO (20:54)
[2021-03-08 21:50] VITALS: RESP 17; O2SAT 97
[2021-03-08] MEDS: morphine ER (12 HR) 30 mg tablet PO (21:50)
--- NOTE | 2021-03-09 05:05 | PC.NURSE ---
EVENING- Patient has been calm and cooperative at this time. Denies any SI/HI or AVH. Has had good interaction with others. NIGHT- In bed resting with eyes closed throughout night. No complaints voiced. No distress noted.
[2021-03-09 05:58] VITALS: BP 100/64; PULSE 80; RESP 17; TEMP 36.5; O2SAT 99
[2021-03-09] MEDS: gabapentin 400 mg Capsule 800 MG PO ×4 (08:56→20:29)
[2021-03-09] MEDS: risperiDONE 2 mg Tablet PO (08:56)
[2021-03-09] MEDS: pantoprazole DR 40 mg Tablet PO ×2 (08:56→17:47)
[2021-03-09] MEDS: morphine ER (12 HR) 30 mg tablet PO ×2 (08:56→20:29)
[2021-03-09 12:47] VITALS: RESP 16; O2SAT 99
[2021-03-09] MEDS: oxyCODONE 5 mg IR Tab/Cap 10 MG PO ×2 (12:47→19:02)
[2021-03-09 14:00] VITALS: BP 118/86; PULSE 88; RESP 17; TEMP 36.6; O2SAT 100
--- NOTE | 2021-03-09 17:57 | PM.NPN ---
Subjective NPU Subjective: Interval history: The patient says he is doing better now that his pain medications have been restarted. He says he slept great. He says his mood is good, and he is doing better than he had been doing. He is going to groups and says they are helpful. He is considering a plan to go to the [facility] for substance use rehabilitation. He denies auditory and visual hallucinations. Denies suicidal and homicidal ideation. We talked some about recent stressors including both his grandparents from COVID. Mental Status Exam MSE Comments: The patient is a well-nourished well-developed white male in hospital scrubs with fair grooming and eye contact. No abnormal movements except for mild psychomotor agitation. Cooperative with exam. No distress. Speech was at an increased rate with a normal volume. Mood described as good, affect was incongruent, sad and blunted. Thought process organized. Thought content: Patient denies suicidal homicidal ideation, there are no delusions reported or noted, he denied auditory or visual hallucinations. Attention concentration were intact and memory was unreliable but none were formally tested. He is alert and oriented x3. Insight and judgment are impaired. Impulse control is impaired. Vitals/I&O/Wt Last Vital Signs Temp 98 F 03/09/21 14:00 Pulse 88 03/09/21 14:00 Resp 17 03/09/21 14:00 BP 118/86 03/09/21 14:00 Pulse Ox 100 03/09/21 14:00 Data NPU : 03/06/21 23:20 03/06/21 23:20 A&P Assessment and plan (1) Major depressive disorder, recurrent severe without psychotic features: Status: Acute (2) Suicidal ideation: Status: Acute (3) Polysubstance abuse: Status: Acute (4) Back pain: Status: Acute Additional A&P Information This is a 36-year-old white male with some history of mental health and addiction issues as well as genetic loading for addiction mental health and possibly suicide who presents near the anniversary of his brother's suicide with reports he was contemplating suicide. Though now he says he has no depression or suicidal ideation, it appears that he is minimizing his symptoms. 1. Continue current medication. We restarted his pain medications. 2. Continue every 15 minute checks for safety. 3. Encourage individual, group and milieu therapies. 4. Encourage sober living treatment after discharge at the highest level of care to which he is willing to commit. Involuntary Hold Information 96 Hour Hold: 96 Hour Involuntary Admission: Yes 96 Hour Hold Ending Date: 03/13/21 96 Hour Hold Ending Time: 21:44 Attestations NPU Medical Necessity Statement*: Inpatient hospitalization is medically necessary and the clinically appropriate intervention at this time. We will monitor medication to make changes as indicated. He is minimizing both mental health and substance use symptoms, and this is a barrier to treatment and discharge. Likely length of stay 3 to 5 days. Coding Level of Care Code Acute Building Contractor for g Fwd Diagnoses Major depressive disorder, recurrent severe without psychotic features F33.2 Suicidal ideation R45.851 Polysubstance abuse F19.10 Back pain M54.9
[2021-03-09 19:02] VITALS: RESP 19
[2021-03-09 20:27] VITALS: BP 134/86; PULSE 85; RESP 18; TEMP 36.6; O2SAT 100
[2021-03-09 20:29] VITALS: RESP 18; O2SAT 99
[2021-03-09] MEDS: mirtazapine 15 mg Tablet 45 MG PO (20:30)
[2021-03-10] VITALS (9 sets, daily range): BP systolic 116–134; BP diastolic 83–88; PULSE 79–122; RESP 17–18; TEMP 36.6–36.7; O2SAT 97–100
[2021-03-10] MEDS: oxyCODONE 5 mg IR Tab/Cap 10 MG PO ×3 (05:26→17:34)
[2021-03-10] MEDS: morphine ER (12 HR) 30 mg tablet PO ×2 (08:20→21:29)
[2021-03-10] MEDS: pantoprazole DR 40 mg Tablet PO ×2 (08:22→17:34)
[2021-03-10] MEDS: gabapentin 400 mg Capsule 800 MG PO ×4 (08:22→21:28)
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
[2021-03-10] MEDS: acetaminophen 325 mg Tablet 650 MG PO (15:39)
[2021-03-10] MEDS: mirtazapine 15 mg Tablet 45 MG PO (21:30)
[2021-03-11] VITALS (7 sets, daily range): BP systolic 118–127; BP diastolic 87–91; PULSE 81–101; RESP 14–20; TEMP 36.6–36.9; O2SAT 97–99
--- NOTE | 2021-03-11 01:09 | PC.NURSE ---
PRN medication given per request as follows- 2129- Morphine. Somewhat effective for pain. 2129- Remoron for sleep aid. Medication effective. 2144- Xanax for anxiety. Medication effective. Has had no further complaints at this time.
[2021-03-11] MEDS: oxyCODONE 5 mg IR Tab/Cap 10 MG PO ×2 (05:36→18:41)
--- NOTE | 2021-03-11 06:40 | PC.NURSE ---
Patient up at 0536. Requested PRN Oxy at that time for pain of 10. Little effect with this medicine. Rates pain at 8 as reassess.
[2021-03-11] MEDS: acetaminophen 325 mg Tablet 650 MG PO ×3 (07:56→18:39)
[2021-03-11] MEDS: morphine ER (12 HR) 30 mg tablet PO ×2 (08:01→20:57)
[2021-03-11] MEDS: pantoprazole DR 40 mg Tablet PO ×2 (08:01→18:40)
[2021-03-11] MEDS: gabapentin 400 mg Capsule 800 MG PO ×4 (08:02→20:56)
[2021-03-11] MEDS: nicotine 21 mg Patch 1 PATCH TRANSDERMA (09:05)
--- NOTE | 2021-03-11 09:59 | P.PN_ITS ---
Subjective NPU Subjective: Interval history: The patient says he is feeling better today. Self-deprecatory thoughts are not as intense. He says that he has had time to think about what he is experiencing. It also seems to make an impression on him that his cousin was admitted to the unit last night. We talked about discharge tomorrow if we are able to make adequate discharge plans and he continues to make progress. He likes this idea. Mental Status Exam MSE Comments: The patient is a well-nourished well-developed white male in hospital scrubs with fair grooming and eye contact. No abnormal movements. No psychomotor agitation or retardation. Cooperative with exam. No distress. Speech was at an increased rate with a normal volume. Mood described as better, and affect is more congruent today. Thought process organized. Thought content: Patient denies suicidal homicidal ideation, there are no delusions reported or noted, he denied auditory or visual hallucinations. Attention concentration were intact and memory was unreliable but none were formally tested. He is alert and oriented x3. Insight and judgment are improving. Impulse control is improving. Vitals/I&O/Wt Last Vital Signs Temp 97.9 F 03/11/21 06:00 Pulse 81 03/11/21 06:00 Resp 14 03/11/21 08:01 BP 120/87 03/11/21 06:00 Pulse Ox 97 03/11/21 06:00 Weight last 48 hrs Weight 75.296 kg Data NPU : 03/06/21 23:20 03/06/21 23:20 A&P Assessment and plan (1) Major depressive disorder, recurrent severe without psychotic features: Status: Acute (2) Suicidal ideation: Status: Acute (3) Polysubstance abuse: Status: Acute (4) Back pain: Status: Acute Additional A&P Information This is a 36-year-old white male with some history of mental health and addiction issues as well as genetic loading for addiction mental health and possibly suicide who presents near the anniversary of his brother's suicide with reports he was contemplating suicide. Though now he says he has no depression or suicidal ideation, it appears that he is minimizing his symptoms. 1. Continue current medication. We restarted his pain medications. Pain is improved. The status of his depression is unclear, because he gives mixed messages about what he is thinking and feeling. He does take Cymbalta 60 mg daily and Remeron 45 mg at bedtime, which are robust doses of antidepressant medications. 2. Continue every 15 minute checks for safety. 3. Encourage individual, group and milieu therapies. 4. Encourage sober living treatment after discharge at the highest level of care to which he is willing to commit. Involuntary Hold Information 96 Hour Hold: 96 Hour Involuntary Admission: Yes 96 Hour Hold Ending Date: 03/13/21 96 Hour Hold Ending Time: 21:44 Attestations NPU Medical Necessity Statement*: Inpatient hospitalization is medically necessary and the clinically appropriate intervention at this time. We will monitor medication to make changes as indicated. He is minimizing both mental health and substance use symptoms, and this is a barrier to treatment and discharge. We will need to make good discharge plans in order to reduce the risk of self- harm post discharge. Likely length of stay 1-3 days. 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
[2021-03-11] MEDS: OLANZapine 5 mg ODT PO (14:24)
--- NOTE | 2021-03-11 17:33 | PC.NURSE ---
PATIENT CONTINUALLY PACING IN HALLWAYS, MAKING SEVERAL INAPPROPRIATE REMARKS, ASKING STAFF IF THEY HAVE A JOINT, ASKING OTHER PATIENTS DO YOU HAVE A JOINT, SEDRICK, SEDRICK, FADIA, MOTHER TRANG!
[2021-03-11] MEDS: loperamide 2 mg Capsule PO (19:18)
[2021-03-11] MEDS: hyDROXYzine 25 mg Capsule 50 MG PO (20:56)
[2021-03-11] MEDS: mirtazapine 15 mg Tablet 45 MG PO (21:10)
--- NOTE | 2021-03-11 22:10 | PC.NURSE ---
Upon assessment patient in hallway. Patient alert/oriented x3, good eye contact. Patient c/o pain to bilateral legs 10/10. He denies any depression, rates anxiety / because his cousin was moved to our other vidal. He denies any SI/HI, hallucinations. He has been social with peers and cooperative with staff. Will continue to monitor and follow plan of care. Q 15 min safety checks per protocol.
--- NOTE | 2021-03-12 02:26 | PC.NURSE ---
Patient refused Cymbalta and Risperdal on day shift. He was compliant with other medications.
[2021-03-12] MEDS: acetaminophen 325 mg Tablet 650 MG PO ×2 (05:15→09:53)
[2021-03-12 05:16] VITALS: RESP 18
[2021-03-12] MEDS: oxyCODONE 5 mg IR Tab/Cap 10 MG PO ×2 (05:16→11:57)
[2021-03-12 06:00] VITALS: BP 98/66; PULSE 70; RESP 19; TEMP 36.7; O2SAT 98
[2021-03-12] MEDS: pantoprazole DR 40 mg Tablet PO (07:54)
[2021-03-12] MEDS: gabapentin 400 mg Capsule 800 MG PO ×2 (07:54→11:57)
[2021-03-12] MEDS: morphine ER (12 HR) 30 mg tablet PO (07:54)
[2021-03-12] MEDS: risperiDONE 2 mg Tablet PO (07:54)
[2021-03-12] MEDS: loperamide 2 mg Capsule PO (08:14)
[2021-03-12 11:01] VITALS: BP 98/66; PULSE 70; RESP 19; TEMP 36.7; O2SAT 98
[2021-03-12] MEDS: OLANZapine 5 mg ODT PO (11:39)
--- NOTE | 2021-03-12 11:41 | PC.NURSE ---
PATIENT LEFT GROUP, WRAPPED IN A BLANKET AND CRYING. ESCORTED HIM BACK TO HIS ROOM. STATED, I FUCKING HATE EMOTIONS. I DON'T CRY. I LOOK LIKE A PUSSY IN FRONT OF ALL THOSE PEOPLE. WHAT WE WE'RE TALKING ABOUT WAS JUST TO CLOSE. MY EX-, BEING MOLESTED, IT ALL REASONS WHY I USED DURGS, I DON'T WANT TO FEEL ALL THIS SHIT.' MEDICATED PATIENT WITH ZYPREXA 5MG PER PRN ORDER. PATIENT CALMING AND RETURNED TO GROUP.
[2021-03-12 11:57] VITALS: RESP 18
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
== END 2021-03-12 14:39 | disposition home or self-care (01) | DRG 885 ==
LOC: ER 03-07 00:09 → NP 03-07 02:33
PROVIDERS: Admitting Provider Psychiatry & Neurology Psychiatry; Emergency Provider Emergency Medicine; Visit Provider Psychiatry & Neurology Child & Adolescent Psychiatry
DX: F33.2 Major depressive disorder, recurrent severe without psychotic features (principal); R45.851 Suicidal ideations; F17.210 Nicotine dependence, cigarettes, uncomplicated; Z81.8 Family history of other mental and behavioral disorders; Z63.4 Disappearance and death of family member; B19.20 Unspecified viral hepatitis C without hepatic coma; F19.10 Other psychoactive substance abuse, uncomplicated; M54.9 Dorsalgia, unspecified; Z79.891 Long term (current) use of opiate analgesic
CPT/HCPCS: 80053; 80307; 85025; 96372; 97150; 97165; 99285; J1630